=== PATIENT | male | born 1935 | race Caucasian/White ===

== ENCOUNTER 2017-07-09 10:14 | Day surgery (SDC) | payer MEDICARE, OTHER ==
[~2017-07-09] VITALS: Ht 170.2 cm; Wt 75.4 kg
[2017-07-09 10:53] VITALS: BP 138/79
[2017-07-09] MEDS ORDERED: SODIUM CHLORIDE 0.9% 1,000 ML IV SCH (10:55)
[2017-07-09] MEDS ORDERED: LIDOCAINE 1%, 20ML ONE (11:09)
[2017-07-09] MEDS ORDERED: NALOXONE 1 MG/ML, 2ML ONE (11:17)
[2017-07-09] MEDS ORDERED: MIDAZOLAM 1 MG/ML, 5ML ONE (11:17)
[2017-07-09] MEDS ORDERED: FENTANYL PF 100 MCG/2ML ONE (11:17)
[2017-07-09] MEDS ORDERED: FLUMAZENIL 0.1 MG/1 ML, 5ML ONE (11:18)
[2017-07-09 11:22] LABS: WHITE BLOOD COUNT 4.7 x10^3/uL (3.4-10)
== END 2017-07-09 13:35 ==
LOC: OUT 10:14
PROVIDERS: ATTEND Internal Medicine
DX: C85.10 Unspecified B-cell lymphoma, unspecified site (principal); I10 Essential (primary) hypertension; I25.10 Atherosclerotic heart disease of native coronary artery without angina pectoris; Z95.1 Presence of aortocoronary bypass graft; Z98.890 Other specified postprocedural states; Z90.49 Acquired absence of other specified parts of digestive tract; Z96.659 Presence of unspecified artificial knee joint; Z87.891 Personal history of nicotine dependence; Z79.82 Long term (current) use of aspirin
CPT/HCPCS: 36415; 38221; 77012; 85025; 85097; 88237; 88264; 88280; 88305; 88311; 88313; 99156; G0364; J2250; J3010; J3490; J7030; 99157; J2310